=== PATIENT | female | born 1950 | race Caucasian/White ===

== ENCOUNTER 2021-06-07 09:25 | Observation (INO) ==
[2021-06-07] MEDS ORDERED: Isovue-370 500 ML BOTTLE IVP ONE (09:38)
[2021-06-07] MEDS ORDERED: *HR* LORazepam 2 MG/ML VIAL IVP ONE (09:38)
[2021-06-07 09:57] LABS: Basophils % 0.1 %; Monocytes % 4.5 %; Red Blood Count 3.69 M/mcL (3.82-4.97)
[2021-06-07 10:01] LABS: Eosinophils # 0.5 K/mcL (0.0-0.6); Eosinophils % 2.9 %; Hemoglobin 11.6 g/dL (11.5-15.4); Immature Granulocytes % 1.2 % (0-4); Lymphocytes # 0.6 K/mcL (0.6-4.6); Lymphocytes % 3.6 %; Mean Corpuscular HGB Conc 33.1 g/dL (31.6-35.5); Mean Corpuscular Hemoglobin 31.4 pg (28.0-33.3); Mean Corpuscular Volume 94.9 fL (83.0-100.0); Mean Platelet Volume 8.8 fL (9.4-12.4); Monocytes # 0.7 K/mcL (0.0-1.3); Neutrophils # 13.9 K/mcL (1.6-8.9); Platelet Count 341 K/mcL (140-400); Red Cell Distribution Width 16.9 % (11.5-14.5); Segmented Neutrophils % 87.7 %; White Blood Count 15.9 K/mcL (4.3-11.1)
[2021-06-07 10:02] LABS: VBG HCO3 22 mEq/L (21-27); VBG PCO2 35 mmHg (41-51); VBG PH 7.41 pH Units (7.32-7.42); VBG PO2 40 mmHg (25-50)
[2021-06-07 10:19] LABS: Alanine Aminotransferase 19 Units/L (7-52); Albumin 4.2 g/dL (3.5-5.7); Albumin/Globulin Ratio 1.6 (1.1-2.2); Alkaline Phosphatase 82 Units/L (34-104); Aspartate Amino Transferase 14 Units/L (13-39); BUN/Creatinine Ratio 34 (6-26); Bilirubin,Total 1.1 mg/dL (0.3-1.0); Blood Urea Nitrogen 28 mg/dL (8-23); Calcium 9.3 mg/dL (8.6-10.3); Carbon Dioxide 21 mEq/L (23-29); Chloride 97 mEq/L (98-107); Globulin 2.7 g/dL (2.4-3.5); Glucose 317 mg/dL (70-105); Osmolality,Calculated 284 (280-300); Potassium 3.9 mEq/L (3.5-5.1); Sodium 128 mEq/L (136-145); Total Protein 6.9 g/dL (6.4-8.9); eGFR For African Americans > 60 (> 60); eGFR For Non-African Americans > 60 (> 60)
[2021-06-07 10:28] LABS: Hypersegmented Neutrophils Present (Not Present); Platelet Estimate Normal (Normal)
[2021-06-07] MEDS ORDERED: Naloxone 0.4 MG/ML INJ IVP PRN (14:23)
[2021-06-07] MEDS ORDERED: Perflutren Lipid Microsphere 1.3 ML in 0.9 % Sodium Chloride 8.7 ML IVP PRN (15:45)
[2021-06-07] MEDS ORDERED: Dextrose Gel 15 GM/37.5 ML TUBE PO PRN ×2 (16:27)
[2021-06-07] MEDS ORDERED: D5% in Water 1,000 ML IVC PRN (16:27)
[2021-06-07] MEDS ORDERED: *HR* Dextrose 50 % in Water (Vial) 50 ML VIAL IVP PRN (16:27)
[2021-06-07] MEDS ORDERED: cephALEXin 500 MG CAPSULE PO SCH (17:00)
[2021-06-07] MEDS: Furosemide 20 MG TABLET PO SCH (17:03)
[2021-06-07] MEDS ORDERED: Lidocaine 5% OINT 35 APPL/35.44 GM TUBE TP ONE (17:04)
[2021-06-07] MEDS: Clobetasol Propionate 0.05% 15 GM Cream Tube TP SCH (17:43)
[2021-06-07] MEDS: *HR* Heparin 5,000 UNIT/ML VIAL SQ SCH (17:44)
[2021-06-07] MEDS: cefTRIAXone 1,000 MG in Water for inj. (sterile) 10 ML IVP SCH (17:44)
[2021-06-07] MEDS: Azithromycin 500 MG in 0.9 % Sodium Chloride 250 ML IVPB SCH (17:44)
[2021-06-07] MEDS: *HR* LORazepam 2 MG/ML VIAL IVP PRN ×2 (17:46→23:58)
[2021-06-07] MEDS ORDERED: Thiamine (B-1) 100 MG, Folic Acid 1 MG, MVI, adult with vitamin K 10 ML in 0.9 % Sodi... IVPB SCH (18:00)
[2021-06-07] MEDS: Insulin LISPRO 300 UNITS/3 ML VIAL SUBQ SCH ×2 (18:01→22:23)
[2021-06-07 19:02] LABS: Complement C3 127 mg/dL (87-200); Estimated Average Glucose 82 mg/dl; Hemoglobin A1C 4.5 %
[2021-06-07 19:04] LABS: C-Reactive Protein < 5 mg/L (Less than 10)
[2021-06-07 19:06] LABS: Troponin I < 0.03 ng/mL (< 0.04)
[2021-06-07 20:00] LABS: Adenovirus Not Detected (Not Detect); Coronavirus 229E Not Detected (Not Detect); Coronavirus HKU1 Not Detected (Not Detect); Coronavirus NL63 Not Detected (Not Detect); Coronavirus OC43 Not Detected (Not Detect)
[2021-06-07 20:01] LABS: Bordetella Pertussis Not Detected (Not Detect); Chlamydophila pneumoniae Not Detected (Not Detect); Human Metapneumovirus Not Detected (Not Detect); Human Rhinovirus/Enterovirus Not Detected (Not Detect); Influenza A Subtype 2009 H1 Not Detected (Not Detect); Influenza B Not Detected (Not Detect); Mycoplasma pneumoniae Not Detected (Not Detect); Parainfluenza Virus 1 Not Detected (Not Detect); Parainfluenza Virus 2 Not Detected (Not Detect); Parainfluenza Virus 3 Not Detected (Not Detect); Parainfluenza Virus 4 Not Detected (Not Detect); Respiratory Syncytial Virus Not Detected (Not Detect); SARS-CoV-2 Not Detected (Not Detect)
[2021-06-07] MEDS: traZODone 50 MG TABLET PO SCH (22:22)
[2021-06-08 00:40] LABS: Basophils % 0.1 %; Hematocrit 28.1 % (35.3-44.9); Hemoglobin 9.2 g/dL (11.5-15.4); Immature Granulocytes % 1.1 % (0-4); Lymphocytes # 0.9 K/mcL (0.6-4.6); Lymphocytes % 7.3 %; Mean Corpuscular HGB Conc 32.7 g/dL (31.6-35.5); Mean Corpuscular Hemoglobin 31.2 pg (28.0-33.3); Mean Corpuscular Volume 95.3 fL (83.0-100.0); Mean Platelet Volume 8.7 fL (9.4-12.4); Monocytes # 0.9 K/mcL (0.0-1.3); Monocytes % 7.5 %; Neutrophils # 9.8 K/mcL (1.6-8.9); Platelet Count 278 K/mcL (140-400); Red Blood Count 2.95 M/mcL (3.82-4.97); Red Cell Distribution Width 16.9 % (11.5-14.5); White Blood Count 11.7 K/mcL (4.3-11.1)
[2021-06-08 00:54] LABS: BUN/Creatinine Ratio 35 (6-26); Blood Urea Nitrogen 23 mg/dL (8-23); Carbon Dioxide 23 mEq/L (23-29); Chloride 101 mEq/L (98-107); Glucose 304 mg/dL (70-105); Osmolality,Calculated 283 (280-300); Phosphorous 2.8 mg/dL (2.7-4.5); Potassium 4.3 mEq/L (3.5-5.1); Sodium 129 mEq/L (136-145); eGFR For African Americans > 60 (> 60); eGFR For Non-African Americans > 60 (> 60)
[2021-06-08] MEDS: *HR* Heparin 5,000 UNIT/ML VIAL SQ SCH ×2 (04:59→16:38)
[2021-06-08] MEDS: cefTRIAXone 1,000 MG in Water for inj. (sterile) 10 ML IVP SCH (08:32)
[2021-06-08] MEDS: Thiamine (B-1) 100 MG TABLET PO SCH (08:33)
[2021-06-08] MEDS: Furosemide 20 MG TABLET PO SCH ×2 (08:33→16:38)
[2021-06-08] MEDS: Metoprolol XL (24 HR) Succ 50 MG TAB.ER.24H PO SCH (08:34)
[2021-06-08] MEDS: Aspirin Enteric Coated 325 MG Tablet PO SCH (08:34)
[2021-06-08] MEDS: Zinc Sulfate 220 MG CAPSULE PO SCH (08:34)
[2021-06-08] MEDS: PARoxetine 10 MG TABLET PO SCH (08:34)
[2021-06-08] MEDS: Folic Acid 1 MG TABLET PO SCH (08:34)
[2021-06-08] MEDS: Vitamin B Complex/Vit C/Vit E 1 EACH TABLET PO SCH (08:34)
[2021-06-08] MEDS: Clobetasol Propionate 0.05% 15 GM Cream Tube TP SCH ×2 (08:35→21:23)
[2021-06-08] MEDS: Insulin LISPRO 300 UNITS/3 ML VIAL SUBQ SCH ×4 (08:38→21:24)
[2021-06-08] MEDS: *HR* LORazepam 2 MG/ML VIAL IVP PRN ×2 (09:17→16:54)
[2021-06-08] MEDS: Azithromycin 500 MG in 0.9 % Sodium Chloride 250 ML IVPB SCH (16:37)
[2021-06-08] MEDS: traZODone 50 MG TABLET PO SCH (21:24)
[2021-06-09] MEDS: *HR* Heparin 5,000 UNIT/ML VIAL SQ SCH ×2 (05:29→18:57)
[2021-06-09 07:10] LABS: BUN/Creatinine Ratio 44 (6-26); Blood Urea Nitrogen 25 mg/dL (8-23); Calcium 8.4 mg/dL (8.6-10.3); Carbon Dioxide 24 mEq/L (23-29); Chloride 101 mEq/L (98-107); Glucose 193 mg/dL (70-105); Osmolality,Calculated 278 (280-300); Potassium 4.2 mEq/L (3.5-5.1); Sodium 129 mEq/L (136-145); eGFR For African Americans > 60 (> 60); eGFR For Non-African Americans > 60 (> 60)
[2021-06-09] MEDS: Insulin LISPRO 300 UNITS/3 ML VIAL SUBQ SCH ×4 (09:54→21:14)
[2021-06-09] MEDS: Thiamine (B-1) 100 MG TABLET PO SCH (09:56)
[2021-06-09] MEDS: Furosemide 20 MG TABLET PO SCH ×2 (09:56→19:00)
[2021-06-09] MEDS: Zinc Sulfate 220 MG CAPSULE PO SCH (09:56)
[2021-06-09] MEDS: Aspirin Enteric Coated 325 MG Tablet PO SCH (09:58)
[2021-06-09] MEDS: Folic Acid 1 MG TABLET PO SCH (09:58)
[2021-06-09] MEDS: cefTRIAXone 1,000 MG in Water for inj. (sterile) 10 ML IVP SCH (09:58)
[2021-06-09] MEDS: Vitamin B Complex/Vit C/Vit E 1 EACH TABLET PO SCH (10:02)
[2021-06-09] MEDS: PARoxetine 10 MG TABLET PO SCH (10:04)
[2021-06-09 12:38] LABS: Basophils % 0.1 %; Hematocrit 30.3 % (35.3-44.9); Hemoglobin 9.8 g/dL (11.5-15.4); Immature Granulocytes % 1.4 % (0-4); Lymphocytes # 0.9 K/mcL (0.6-4.6); Lymphocytes % 6.7 %; Mean Corpuscular HGB Conc 32.3 g/dL (31.6-35.5); Mean Corpuscular Hemoglobin 31.8 pg (28.0-33.3); Mean Corpuscular Volume 98.4 fL (83.0-100.0); Mean Platelet Volume 9.4 fL (9.4-12.4); Monocytes # 0.7 K/mcL (0.0-1.3); Monocytes % 5.2 %; Neutrophils # 11.6 K/mcL (1.6-8.9); Platelet Count 253 K/mcL (140-400); Red Blood Count 3.08 M/mcL (3.82-4.97); Segmented Neutrophils % 86.6 %; White Blood Count 13.4 K/mcL (4.3-11.1)
[2021-06-09] MEDS: *HR* LORazepam 1 MG TABLET PO PRN ×2 (14:46→21:07)
[2021-06-09] MEDS: Metoprolol XL (24 HR) Succ 50 MG TAB.ER.24H PO SCH (14:58)
[2021-06-09] MEDS: Azithromycin 500 MG in 0.9 % Sodium Chloride 250 ML IVPB SCH (19:09)
[2021-06-09] MEDS: Clobetasol Propionate 0.05% 15 GM Cream Tube TP SCH ×2 (19:10→21:07)
[2021-06-09] MEDS: traZODone 50 MG TABLET PO SCH (21:07)
[2021-06-10] MEDS: *HR* LORazepam 1 MG TABLET PO PRN ×2 (03:24→09:35)
[2021-06-10] MEDS: *HR* Heparin 5,000 UNIT/ML VIAL SQ SCH (06:24)
[2021-06-10] MEDS: Aspirin Enteric Coated 325 MG Tablet PO SCH (09:33)
[2021-06-10] MEDS: PARoxetine 10 MG TABLET PO SCH (09:34)
[2021-06-10] MEDS: Metoprolol XL (24 HR) Succ 50 MG TAB.ER.24H PO SCH (09:34)
[2021-06-10] MEDS: Thiamine (B-1) 100 MG TABLET PO SCH (09:34)
[2021-06-10] MEDS: Furosemide 20 MG TABLET PO SCH (09:34)
[2021-06-10] MEDS: Vitamin B Complex/Vit C/Vit E 1 EACH TABLET PO SCH (09:35)
[2021-06-10] MEDS: Folic Acid 1 MG TABLET PO SCH (09:35)
[2021-06-10] MEDS: Zinc Sulfate 220 MG CAPSULE PO SCH (09:35)
[2021-06-10] MEDS: cefTRIAXone 1,000 MG in Water for inj. (sterile) 10 ML IVP SCH (09:36)
[2021-06-10] MEDS: Insulin LISPRO 300 UNITS/3 ML VIAL SUBQ SCH ×2 (09:37→13:55)
[2021-06-10] MEDS: Clobetasol Propionate 0.05% 15 GM Cream Tube TP SCH (09:56)
[2021-06-10 11:04] LABS: Serine Protease-3 Antibody 1 AU/mL (0-19)
[2021-06-10 14:35] VITALS: BP 133/70; PULSE 70; TEMP 97.4; O2SAT 94
[2021-06-10] MEDS ORDERED: Azithromycin 250 MG TABLET PO SCH (18:00)
[2021-06-11 07:26] LABS: ANA IgG by ELISA NONE DETECTED (None Detected)
== END 2021-06-10 17:00 | disposition home or self-care (01) ==
LOC: 3NENU 09:25 → EMEROOARM 09:25 → SUATTDRO 14:48 → 3NENU 16:32
PROVIDERS: ADMIT Internal Medicine; ATTEND Internal Medicine